=== PATIENT | male | born 1995 | race Native Hawaiian/Other Pacific Islander ===

== ENCOUNTER 2017-10-27 10:46 | Emergency (ER) | payer OTHER ==
[2017-10-27 10:58] VITALS: RESP 16; TEMP 98.7; O2SAT 99
[2017-10-27] MEDS: Neomycin/Polymyxin/Hydrocort Otic Soln BOTTLE AD STA (12:34)
--- NOTE | 2017-10-27 13:04 | C.PDOC ---
History Of Present Illness 22 y/o male presents to the ED complaining of right sided ear pain radiating down the jaw and to right teeth. Also reports he feels sound has seemed muffled from the ear for 2 days. Denies any fever, headache, dizziness, neck pain/ stiffness, nausea, or vomiting. Time Seen by Provider: 10/27/17 11:37 Chief Complaint (Nursing): Dental Pain History Per: Patient History/Exam Limitations: no limitations Onset/Duration Of Symptoms: Days (x2) Current Symptoms Are (Timing): Still Present Past Medical History Reviewed: Historical Data, Nursing Documentation, Vital Signs Vital Signs: Last Vital Signs Temp 98.7 F 10/27/17 10:56 Pulse 80 10/27/17 13:12 Resp 16 10/27/17 13:12 BP 146/82 10/27/17 13:12 Pulse Ox 99 10/27/17 13:12 - Medical History PMH: No Chronic Diseases Family History: States: No Known Family Hx - Social History Hx Tobacco Use: No Hx Alcohol Use: No Hx Substance Use: No Review Of Systems Except As Marked, All Systems Reviewed And Found Negative. Constitutional: Negative for: Fever, Chills ENT: Positive for: Ear Pain (right) Gastrointestinal: Negative for: Nausea, Vomiting Musculoskeletal: Positive for: Other (right jaw/dental pain). Negative for: Neck Pain Neurological: Negative for: Headache, Dizziness Physical Exam - Physical Exam Appears: Non-toxic, No Acute Distress Skin: Normal Color, Warm, Dry Head: Atraumatic, Normacephalic, Other (No tenderness to right jaw or mastoid; No facial tenderness or swelling ) Eye(s): bilateral: Normal Inspection, PERRL, EOMI Ear(s): Left: Normal, Right: Other (prurulent discharge and swelling to right external canal, TM not visualized) Nose: Normal Oral Mucosa: Moist Teeth: Normal Dentition, No Caries, No Tender To Palpation Gingiva: Normal Appearing, No Swelling, No Abscess Throat: Normal, No Erythema, No Exudate, No Drooling Neck: Normal ROM, Supple Lymphatic: No Adenopathy (to pre-auricular region) Cardiovascular: Rhythm Regular, No Murmur Respiratory: Normal Breath Sounds, No Accessory Muscle Use Neurological/Psych: Oriented x3, Normal Speech ED Course And Treatment O2 Sat by Pulse Oximetry: 99 (RA) Pulse Ox Interpretation: Normal Progress Note: Finger stick is wnl. Patient treated with ear drops, ibuprofen, and amoxicillin. Counseled regarding diagnosis and treatment plan. Patient is stable for d/c home. Provided rx for ear drops, ibuprofen, and amoxicillin. Advised patient to f/u with ENT for further evaluation. Disposition Counseled Patient/Family Regarding: Diagnosis, Need For Followup, Rx Given - Disposition Referrals: Aaron Restrepo MD [Staff Provider] - Disposition: HOME/ ROUTINE Disposition Time: 13:02 Condition: STABLE Additional Instructions: Follow up with PMD and ENT specialist within 1-2 days. Return to ED if feel worse. Prescriptions: Amoxicillin 500 mg PO Q8 #30 tab Neomycin/Polymyxin/Hydrocortis [Cortisporin Otic Susp] 4 drop TOP TID #1 bottle Ibuprofen [Motrin Tab] 600 mg PO Q8 #30 tab Instructions: Ear Infections (Otitis Media) Forms: [employer] (Danish) - POA Present On Arrival: None - Clinical Impression Clinical Impression: Otitis externa - PA / SLIP FILLER / Resident Statement MD/DO has reviewed & agrees with the documentation as recorded. - Scribe Statement The provider has reviewed the documentation as recorded by the Scribe (Anastasiya Mendez) All medical record entries made by the Scribe were at my direction and personally dictated by me. I have reviewed the chart and agree that the record accurately reflects my personal performance of the history, physical exam, medical decision making, and the department course for this patient. I have also personally directed, reviewed, and agree with the discharge instructions and disposition.
[2017-10-27 13:13] VITALS: BP 146/82; PULSE 80
== END 2017-10-27 13:12 | disposition home or self-care (01) ==
LOC: C.ER 10:46
DX: H60.91 Unspecified otitis externa, right ear (principal)